=== PATIENT | female | born 1965 | race Hispanic/Latino ===

== ENCOUNTER 2019-03-11 06:13 | Emergency (ER) | payer MEDICAID ==
--- NOTE | 2019-03-11 07:37 | XRay Report ---
Right RIBS with PA chest, 3 views INDICATION: Right-sided pain following fall 3 days ago FINDINGS: The ribs are intact with no fracture seen. Accompanying chest x-ray is unremarkable. No sig nificant abnormality. Signer Name: Az Devries MD Signed: 03/11/2019 7:32 AM Workstation Name: [id number]
[2019-03-11 08:01] LABS: Basophils % (Auto) 0.2 % (0.0-1.8); Eosinophils % (Auto) 0.2 % (0.0-4.3); Hematocrit 40.9 % (30.3-42.9); Lymphocytes # (Auto) 1.3 K/mm3 (1.2-5.4); Lymphocytes % (Auto) 8.9 % (13.4-35.0); Mean Corpuscular HGB Conc 34 % (30-34); Mean Corpuscular Volume 93 fl (79-97); Monocytes # (Auto) 0.9 K/mm3 (0.0-0.8); Monocytes % (Auto) 6.5 % (0.0-7.3); Platelet Count 243 K/mm3 (140-440); Red Blood Count 4.42 M/mm3 (3.65-5.03); Red Cell Distribution Width 14.1 % (13.2-15.2)
[2019-03-11 08:49] LABS: BUN/Creatinine Ratio 14; Blood Urea Nitrogen 10 mg/dL (7-17)
[2019-03-11 08:50] LABS: Alanine Aminotransferase 15 units/L (7-56); Albumin 4.2 g/dL (3.9-5); Calcium 9.6 mg/dL (8.4-10.2); Hemolysis Index 6
[2019-03-11] MEDS ORDERED: TORADOL IV ONE (09:23)
[2019-03-11] MEDS ORDERED: NACL 0.9% 1000 ML 1,000 ML IV ONE (09:23)
[2019-03-11] MEDS ORDERED: ZITHROMAX PO ONE (09:24)
[2019-03-11] MEDS ORDERED: ROCEPHIN/NS 1 GM/50 ML 1 GM/50 ML BAG IV ONE (09:24)
--- NOTE | 2019-03-11 11:00 | Cat Scan Report ---
CT ABDOMEN AND PELVIS WITHOUT CONTRAST HISTORY: MAIN: Pain TECH NOTES: PT C/O RIGHT FLANK PAIN AND NAUSEATED X LAST NIGHT COMPARISON: 04/13/2016 TECHNIQUE: Axial CT images were obtained through the abdomen and pelvis without IV contrast. Sagittal and coronal reformatted images. All CT scans at this location are performed using CT dose reduction for ALARA by means of automated exposure control. FINDINGS: CT ABDOMEN: Lung Bases: There is mild subpleural opacity in the posterior right lower lobe. Similar appearing but smaller subpleural opacity is identified in the inferior lingula. These areas are most consistent wi th focal atelectasis. No pleural effusion or pneumothorax. Normal heart size. Liver: No significant abnormality. Biliary: Cholecystectomy. No biliary dilatation. Spleen: No significant abnormality. Unenlarged. Pancreas: No significant abnormality. Adrenals: No significant abnormality. Kidneys: No significant abnormality. Lymphatics: No lymphadenopathy. Vasculature: No significant abnormality. Bowel/Peritoneum: No significant abnormality. No free air. No free fluid. Appendectomy changes are damon spected. CT PELVIS: : Hysterectomy changes. The bladder and distal ureters are unremarkable. Osseous Structures: Moderate degenerative disc disease at L2-3 and L5-S1. No acute fracture is apprec iated Additional Findings: A small right paraumbilical hernia containing fat is noted. IMPRESSION: Small airspace opacities in the posterior right lower lobe and inferior lingula most consistent with atelectatic changes. No acute abdominal process is identified. No clear explanation for right flank pain in the abdomen or pelvis. Surgical changes as described. Small right paraumbilical hernia containing fat. Signer Name: Jadiel White Jr, MD Signed: 03/11/2019 10:56 AM Workstation Name: [id number]
[2019-03-11 11:37] LABS: Bilirubin,Urine NEG (Negative); Blood,Urine NEG (Negative); Color,Urine Yellow (Yellow); Mucus,Urine 2+ /HPF; Protein,Urine <15 mg/dL mg/dL (Negative); Urobilinogen,Urine < 2.0 mg/dL (<2.0)
[2019-03-11 12:08] VITALS: BP 108/63
--- NOTE | 2019-03-11 12:21 | Emergency Department Report ---
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 denies: confusion, diaphoresis, headache, muscle aches, nausea/vomiting, rash, sore throat, stiff neck, syncope, weakness ED Review of Systems ROS: Stated complaint: RIGHT SIDE PAIN Other details as noted in HPI Other: GENERAL: Fever. No weight change, fatigue, weakness, chills, or night sweats SKIN: No changes in skin or hair, no itching, no rashes, no jaundice HEAD: No trauma, headache, or visual changes EYES: No blurriness, tearing, itching, acute visual loss, conjunctival discoloration, or scleral icterus EARS: No hearing loss, tinnitus, vertigo, or earache NOSE: No rhinorrhea, stuffiness, sneezing, itching, or epistaxis MOUTH: No bleeding gums, hoarseness, sore throat, or swelling CARDIAC: No new murmur, chest pain, palpitations, dyspnea on exertion, orthopnea, PND, or edema RESPIRATORY: Shortness of breath and cough. No wheeze, sputum production, hemoptysis, pneumonia, asthma, bronchitis, or emphysema GI: RUQ abdominal pain. No nausea, vomiting, dysphagia, change in bowel frequency, diarrhea, constipation, bleeding, hematemesis, melena, hematochezia URINARY: No frequency, urgency, polyuria, dysuria, hematuria, or incontinence MUSCULOSKELETAL: No muscle weakness, joint stiffness, decrease in range of motion, redness, swelling NEUROLOGIC: No loss of sensation, numbness, tingling, tremors, weakness, paralysis, seizures HEMATOLOGIC: No anemia, easy bruising, bleeding, petechiae, or purpura ENDOCRINE: No hot or cold intolerance, sweating, polyuria, polydipsia or, polyphagia no thyroid problems PSYCHIATRIC: No change in mood, no anxiety, no depression GENITAL: Female: No change in menstrual regularity, no frequency or dysmenorrhea. Denies discharge or bleeding ED Past Medical Hx - Past Medical History Previous Medical History?: Yes Hx GERD: Yes Additional medical history: Muscle dystrophy - Surgical History Past Surgical History?: Yes Hx Cholecystectomy: Yes Hx Appendectomy: Yes Additional Surgical History: partial hyster. left eye - Social History Smoking Status: Never Smoker Substance Use Type: None - Medications Home Medications: Home Medications Medication Instructions Recorded Confirmed Last Taken Type Sulfamethoxazole/Trimethoprim 1 each PO BID 11/22/15 11/24/15 11/23/15 History [Bactrim DS TAB] HYDROcodone/APAP 5-325 [[place] 1 each PO Q4HR PRN #20 tablet 04/13/16 Unknown Rx 5-325 mg TAB] Ondansetron [Zofran ODT TAB] 8 mg PO Q8HR #20 tab.rapdis 04/13/16 Unknown Rx Ibuprofen [Motrin 400 MG tab] 400 mg PO Q6H PRN #20 tablet 03/11/19 Unknown Rx levoFLOXacin [Levaquin] 750 mg PO QDAY #5 tablet 03/11/19 Unknown Rx ED Physical Exam - General Limitations: No Limitations - Other Other exam information: GENERAL: Patient in no acute distress HEAD: Normocephalic, atraumatic EYES: PERRLA, EOM intact, no scleral icterus, no papilledema, no conjunctival hemorrhage, visual quiros and acuity wnl NOSE: No tenderness, discharge, sinus tenderness MOUTH: No erythema, bleeding, exudate HEART: Regular rate and rhythm, no murmur, S1-S2 are auscultated, pulses are symmetric LUNGS: Right lower lung rales mild, No wheezing, rhonchi ABDOMEN: Normal bowel sounds, no tenderness, no rebound, no guarding, no masses, no CVA tenderness MUSCULOSKELETAL: Normal joint range of motion, no redness, no swelling, no tenderness NEUROLOGIC: GCS 15, Alert and Oriented x3, Cranial nerves intact, normal sensation, normal strength, no cerebellar deficit PSYCHIATRIC: No homicidal or suicidal ideation, no anxiety, no depression, no hallucinations SKIN: Skin is warm and dry, no wounds, no rashes ED Course Vital Signs 03/11/19 03/11/19 03/11/19 06:38 07:56 09:45 Temperature 100.5 F H Pulse Rate 92 H Respiratory 18 18 17 Rate Blood Pressure 145/81 [Right] O2 Sat by Pulse 94 96 Oximetry 03/11/19 03/11/19 09:55 12:07 Temperature 98.3 F Pulse Rate 74 Respiratory 17 18 Rate Blood Pressure 108/63 [Right] O2 Sat by Pulse 93 Oximetry ED Medical Decision Making - Lab Data Result diagrams: 03/11/19 07:24 03/11/19 07:24 Laboratory Results - last 24 hr 03/11/19 03/11/19 03/11/19 07:24 07:24 09:37 WBC 14.1 H RBC 4.42 Hgb 14.0 Hct 40.9 MCV 93 MCH 32 MCHC 34 RDW 14.1 Plt Count 243 Lymph % (Auto) 8.9 L [place] % (Auto) 6.5 Eos % (Auto) 0.2 Baso % (Auto) 0.2 Lymph # 1.3 [place] # 0.9 H Eos # 0.0 Baso # 0.0 Seg Neutrophils % 84.2 H Seg Neutrophils # 11.9 H POC ABG pH POC ABG pCO2 POC ABG pO2 POC ABG HCO3 POC ABG Total CO2 POC ABG O2 Sat POC ABG Base Excess FiO2 Sodium 142 Potassium 4.6 Chloride 101.2 Carbon Dioxide 31 H Anion Gap 14 BUN 10 Creatinine 0.7 Estimated GFR > 60 BUN/Creatinine Ratio 14 Glucose 117 H Lactic Acid 0.90 Calcium 9.6 Total Bilirubin 2.20 H AST 24 ALT 15 Alkaline Phosphatase 67 Total Protein 8.0 Albumin 4.2 Albumin/Globulin Ratio 1.1 Lipase Urine Color Urine Turbidity Urine pH Ur Specific [place] Urine Protein Urine Glucose (UA) Urine Ketones Urine Blood Urine Nitrite Urine Bilirubin Urine Urobilinogen Ur Leukocyte Esterase Urine WBC (Auto) Urine RBC (Auto) U Epithel Cells (Auto) Urine Mucus 03/11/19 03/11/19 03/11/19 09:37 12:04 Unknown WBC RBC Hgb Hct MCV MCH MCHC RDW Plt Count Lymph % (Auto) [place] % (Auto) Eos % (Auto) Baso % (Auto) Lymph # [place] # Eos # Baso # Seg Neutrophils % Seg Neutrophils # POC ABG pH 7.371 POC ABG pCO2 43.1 POC ABG pO2 73 L POC ABG HCO3 25.0 POC ABG Total CO2 26 POC ABG O2 Sat 94 POC ABG Base Excess 0 FiO2 21 Sodium Potassium Chloride Carbon Dioxide Anion Gap BUN Creatinine Estimated GFR BUN/Creatinine Ratio Glucose Lactic Acid Calcium Total Bilirubin AST ALT Alkaline Phosphatase Total Protein Albumin Albumin/Globulin Ratio Lipase 8 L Urine Color Yellow Urine Turbidity Clear Urine pH 6.0 Ur Specific [place] 1.018 Urine Protein <15 mg/dl Urine Glucose (UA) Neg Urine Ketones Neg Urine Blood Neg Urine Nitrite Neg Urine Bilirubin Neg Urine Urobilinogen < 2.0 Ur Leukocyte Esterase Neg Urine WBC (Auto) 1.0 Urine RBC (Auto) 2.0 U Epithel Cells (Auto) 1.0 Urine Mucus 2+ - Radiology Data Radiology results: report reviewed - Medical Decision Making Patient comfortable. Updated with results. Plan discharge with outpatient follow up. Agrees to return if any worsening. Critical care attestation.: If time is entered above; I have spent that time in minutes in the direct care of this critically ill patient, excluding procedure time. ED Disposition Clinical Impression: Pneumonia Qualifiers: Pneumonia type: due to unspecified organism Laterality: right Lung location: unspecified part of lung Qualified Code(s): J18.9 - Pneumonia, unspecified organism Disposition: TO HOME OR SELFCARE Is pt being admited?: No Condition: Stable Instructions: Community-acquired Pneumonia (ED), Abdominal Pain (ED) Prescriptions: levoFLOXacin [Levaquin] 750 mg PO QDAY #5 tablet Ibuprofen [Motrin 400 MG tab] 400 mg PO Q6H PRN #20 tablet PRN Reason: Pain, Mild (1-3) Referrals: BOLA VALERIO MD [Primary Care Provider] - 2-3 Days [facility] [place]] - as needed Time of Disposition: 12:19
== END 2019-03-11 13:14 | disposition home or self-care (01) ==
LOC: ED 06:13
DX: J18.9 Pneumonia, unspecified organism (principal); K21.9 Gastro-esophageal reflux disease without esophagitis; Z90.49 Acquired absence of other specified parts of digestive tract; Z90.710 Acquired absence of both cervix and uterus; Z79.899 Other long term (current) drug therapy; Z88.8 Allergy status to other drugs, medicaments and biological substances
CPT/HCPCS: 36415; 71101; 74176; 80053; 81001; 82140; 82803; 83690; 85025; 87040; 96365; 96375; 99285; J0696; J1885; J7030

== ENCOUNTER 2019-04-18 17:42 | Emergency (ER) | payer MEDICAID ==
[2019-04-18 17:55] VITALS: BP 185/109
--- NOTE | 2019-04-18 18:54 | Event Note ---
ED Screening Note Date of service: 04/18/19 Time: 18:51 ED Screening Note: This is a 53 y.o. F. that presents to the ER with bleeding under gingival area of #25 & 26. Patient reports bleeding for 2 hours and unable to control bleeding. Currently on antibiotics for bronchitis. This initial assessment/diagnostic orders/clinical plan/treatment(s) is/are subject to change based on patients health status, clinical progression and re- assessment by fellow clinical providers in the ED. Further treatment and workup at subsequent clinical providers discretion. Patient/guardian urged not to elope from the ED as their condition may be serious if not clinically assessed and managed. Initial orders include:
[2019-04-18] MEDS ORDERED: XYLOCAINE 2%/ EPI 1:200,000 INFILTRATI ONE ×2 (22:39→22:41)
[2019-04-18] MEDS ORDERED: XYLOCAINE 1%/ EPI 1:100,000 INFILTRATI NR (23:00)
--- NOTE | 2019-04-19 00:14 | Emergency Department Report ---
ED General Adult HPI - General Chief complaint: Dental/Oral Stated complaint: BLEEDING FROM GUMS/PAIN Time Seen by Provider: 04/18/19 18:50 Source: EMS Mode of arrival: Ambulatory Limitations: No Limitations - History of Present Illness -: Gradual Location: mouth Radiation: non-radiation Quality: aching Consistency: constant Improves with: none Worsens with: none Associated Symptoms: denies: chest pain, cough, diaphoresis, loss of appetite, malaise, nausea/vomiting Treatments Prior to Arrival: none - Related Data Home Medications Medication Instructions Recorded Confirmed Last Taken Sulfamethoxazole/Trimethoprim 1 each PO BID 11/22/15 11/24/15 11/23/15 [Bactrim DS TAB] Previous Rx's Medication Instructions Recorded Last Taken Type HYDROcodone/APAP 5-325 [[place] 1 each PO Q4HR PRN #20 tablet 04/13/16 Unknown Rx 5-325 mg TAB] Ondansetron [Zofran ODT TAB] 8 mg PO Q8HR #20 tab.rapdis 04/13/16 Unknown Rx Ibuprofen [Motrin 400 MG tab] 400 mg PO Q6H PRN #20 tablet 03/11/19 Unknown Rx levoFLOXacin [Levaquin] 750 mg PO QDAY #5 tablet 03/11/19 Unknown Rx Chlorhexidine Mouthwash [Peridex] 15 ml MM BID #473 bottle 04/19/19 Unknown Rx Lidocaine Viscous 2% 5 ml MM Q3H PRN #120 udc 04/19/19 Unknown Rx Allergies Allergy/AdvReac Type Severity Reaction Status Date / Time prochlorperazine AdvReac Swelling Verified 11/22/15 11:59 [From Compazine] prochlorperazine edisylate AdvReac Swelling Verified 11/22/15 11:59 [From Compazine] prochlorperazine maleate AdvReac Swelling Verified 11/22/15 11:59 [From Compazine] ED Review of Systems ROS: Stated complaint: BLEEDING FROM GUMS/PAIN Other details as noted in HPI Comment: All other systems reviewed and negative ED Past Medical Hx - Past Medical History Previous Medical History?: Yes Hx GERD: Yes Additional medical history: Muscle dystrophy, Enlarged heart - Surgical History Past Surgical History?: Yes Hx Cholecystectomy: Yes Hx Appendectomy: Yes Additional Surgical History: partial hyster. left eye - Social History Smoking Status: Never Smoker Substance Use Type: Prescribed - Medications Home Medications: Home Medications Medication Instructions Recorded Confirmed Last Taken Type Sulfamethoxazole/Trimethoprim 1 each PO BID 11/22/15 11/24/15 11/23/15 History [Bactrim DS TAB] HYDROcodone/APAP 5-325 [[place] 1 each PO Q4HR PRN #20 tablet 04/13/16 Unknown Rx 5-325 mg TAB] Ondansetron [Zofran ODT TAB] 8 mg PO Q8HR #20 tab.rapdis 04/13/16 Unknown Rx Ibuprofen [Motrin 400 MG tab] 400 mg PO Q6H PRN #20 tablet 03/11/19 Unknown Rx levoFLOXacin [Levaquin] 750 mg PO QDAY #5 tablet 03/11/19 Unknown Rx Chlorhexidine Mouthwash [Peridex] 15 ml MM BID #473 bottle 04/19/19 Unknown Rx Lidocaine Viscous 2% 5 ml MM Q3H PRN #120 udc 04/19/19 Unknown Rx ED Physical Exam - General Limitations: No Limitations General appearance: alert, in no apparent distress - Head Head exam: Present: atraumatic, normocephalic - Eye Eye exam: Present: normal appearance, PERRL, EOMI Pupils: Present: normal accommodation - ENT ENT exam: Present: normal exam, mucous membranes moist. Absent: normal orophraynx, mucous membranes dry, TM's normal bilaterally - Neck Neck exam: Present: normal inspection, full ROM - Respiratory Respiratory exam: Present: normal lung sounds bilaterally. Absent: respiratory distress, wheezes, rales, rhonchi - Cardiovascular Cardiovascular Exam: Present: regular rate, normal rhythm. Absent: systolic murmur, diastolic murmur, rubs, gallop - GI/Abdominal GI/Abdominal exam: Present: soft, normal bowel sounds. Absent: distended, tenderness, guarding, hyperactive bowel sounds, hypoactive bowel sounds, organomegaly - Extremities Exam Extremities exam: Present: normal inspection - Back Exam Back exam: Present: normal inspection - Neurological Exam Neurological exam: Present: alert, oriented X3 - Psychiatric Psychiatric exam: Present: normal affect, normal mood - Skin Skin exam: Present: warm, dry, intact, normal color. Absent: rash ED Course Vital Signs 04/18/19 17:48 Temperature 98.3 F Pulse Rate 82 Respiratory 18 Rate Blood Pressure 185/109 O2 Sat by Pulse 97 Oximetry Critical care attestation.: If time is entered above; I have spent that time in minutes in the direct care of this critically ill patient, excluding procedure time. ED Disposition Clinical Impression: Bleeding gums, Gingivitis Disposition: TO HOME OR SELFCARE Is pt being admited?: No Does the pt Need Aspirin: No Condition: Stable Instructions: Gingivitis (ED) Prescriptions: Lidocaine Viscous 2% 5 ml MM Q3H PRN #120 udc PRN Reason: Pain, Moderate (4-6) Chlorhexidine Mouthwash [Peridex] 15 ml MM BID #473 bottle Referrals: PRIMARY CARE, [Primary Care Provider] - 3-5 Days [facility] [Outside] - 3-5 Days
== END 2019-04-19 00:28 | disposition home or self-care (01) ==
LOC: ED 17:42
DX: K05.10 Chronic gingivitis, plaque induced (principal); K06.8 Other specified disorders of gingiva and edentulous alveolar ridge; K21.9 Gastro-esophageal reflux disease without esophagitis; Z90.49 Acquired absence of other specified parts of digestive tract; Z88.8 Allergy status to other drugs, medicaments and biological substances